=== PATIENT | male | born 1975 | race Caucasian/White ===

== ENCOUNTER 2023-03-10 12:27 | Emergency (ER) | payer OTHER, SELFPAY ==
--- NOTE | ~2023-03-10 | XR_ITS ---
EXAMINATION: XR FOREARM, LEFT Left hand series CLINICAL INFORMATION: Pain swelling decreased range of motion. COMPARISON: None available. TECHNIQUE: AP and lateral views of the left forearm were obtained. 4 views of the left hand including scaphoid view of the wrist FINDINGS: Left hand: The bones joints and soft tissues are normal. I do not see a fracture. Left forearm: Bone and surrounding soft tissues are normal. Elbow unremarkable. XR/XR hand wrist LT IMPRESSION: LEFT HAND: Normal. LEFT FOREARM: Normal.
--- NOTE | ~2023-03-10 | XR_ITS ---
EXAMINATION: XR FOREARM, LEFT Left hand series CLINICAL INFORMATION: Pain swelling decreased range of motion. COMPARISON: None available. TECHNIQUE: AP and lateral views of the left forearm were obtained. 4 views of the left hand including scaphoid view of the wrist FINDINGS: Left hand: The bones joints and soft tissues are normal. I do not see a fracture. Left forearm: Bone and surrounding soft tissues are normal. Elbow unremarkable. XR/XR forearm LT 2V IMPRESSION: LEFT HAND: Normal. LEFT FOREARM: Normal.
[2023-03-10 12:36] VITALS: BP 141/91; PULSE 107; RESP 18; TEMP 37.1; O2SAT 99; BMI 22.8
--- NOTE | 2023-03-10 12:38 | ED.UPPEXIN ---
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 Reports on Monday was working with a [employer] all day, denies direct injury/trauma or fall, states routine soreness afterwards, however yesterday worked again with [employer], & woke up this morning with excruciating pain. Denies fever/chills, numbness/tingling, weakness MD complaint: injury to: arm, forearm, wrist and hand Related Data Previous Rx's Medication Instructions Recorded acetaminophen 300 mg-codeine 30 mg 1 tab PO Q8H PRN pain (scale score 03/10/23 tablet 7-10) 3 days #9 tabs doxycycline hyclate 100 mg tablet 100 mg PO BID 7 days #14 tabs 03/10/23 naproxen 500 mg tablet 500 mg PO BID PRN pain 10 days #20 03/10/23 tabs prednisone 20 mg tablet 40 mg (2 x 20 mg) PO DAILY 5 days 03/10/23 #10 tabs Allergies Allergy/AdvReac Type Severity Reaction Status Date / Time No Known Allergies Allergy Verified 03/10/23 12:35 Review of Systems Review of Systems: Constitutional: No Fever, No Chills ENT/Mouth: No Ear Pain, No Nasal Congestion, No sore throat, No Rhinorrhea, No Swallowing Difficulty Cardiovascular: No Chest Pain, No SOB Respiratory: No Cough, No Sputum, No Wheezing Gastrointestinal: No Nausea, No Vomiting, No Diarrhea, No Constipation, No Abdominal pain Musculoskeletal: + joint pain, No Myalgias, +Joint Swelling Skin: No Skin Lesions, No rash Neuro: No Weakness, No Numbness, No Paresthesias Yes all other systems are reviewed and are negative Constitutional: Constitutional: Reports as per [facility] Past Medical History Attestation statement: The following information was validated with the patient. Source: old records reviewed Social History Social History Advance Directives: No Advance Directives Information Provided: No Physical Exam Vital Signs: Vital Signs: Last Vital Signs Temp 98.8 F 03/10/23 12:36 Pulse 107 H 03/10/23 12:36 Resp 18 03/10/23 12:36 BP 141/91 H 03/10/23 12:36 Pulse Ox 99 03/10/23 12:36 O2 Del Method Room Air 03/10/23 12:36 BMI result Body Mass Index 22.8 Const: General: cooperative, healthy appearing and no acute distress Orientation/consciousness: patient oriented x3 Limitations: no limitations HEENT: Head: Yes normal to inspection and Yes atraumatic Ears: hearing grossly normal bilaterally General nose exam: Normal external nose present Face and sinus: Yes normal facial exam Eyes: General: appearance normal, both eyes and all related structures EOM: EOMs intact bilaterally Neck: Neck: Yes normal visual inspection and Yes no meningeal signs Resp: Effort & Inspection: normal respiratory effort and no respiratory distress Cardio: Rate: regular rate Peripheral pulses: radial pulses present and ulnar radial pulses present Skin: Rashes: no rashes Neuro: General: patient oriented x3, tone normal, moves all extremities and no meningeal signs Cranial nerves: Yes CN's II-XII intact bilaterally Gait exam (Neuro): Normal gait present Extrem: Other: Please refer to images above. Left wrist with mild swelling & erythema. Diffusely tender to palpation. Small ?bite wound to palmar aspect with extending streaking. + snuffbox tenderness. Hand diffusely tender. Old healing callus noted to the palmar aspect of 4th metacarpal. Limited ROM to wrist and digits. Neurovascularly intact. Elbow nontender. No pitting edema. No crepitus. Compartments soft Course Course Course Narrative: XR hand wrist LT/XR forearm LT 2V IMPRESSION: LEFT HAND: Normal. LEFT FOREARM: Normal. > thumb spica splint applied due to snuffbox tenderness. -labs reassuring Results discussed with patient including worrisome signs and symptoms and strict return precautions, and when to return to the emergency department. They verbalized understanding and feel safe for discharge at this time. Medications Administered Discontinued Medications Generic Name Dose Route Start Last Admin Trade Name Freq PRN Reason Stop Dose Admin Ketorolac Tromethamine 30 mg 03/10/23 12:43 03/10/23 13:29 Ketorolac Tromethamine 30 Mg/Ml Vial IM 03/10/23 12:44 30 mg ONCE ONE Administration Oxycodone HCl 5 mg 03/10/23 12:43 03/10/23 13:29 Oxycodone Hcl Immed Release 5 Mg Tablet PO 03/10/23 12:44 5 mg ONCE ONE Administration Medical Decision Making Medical Decision Making [facility] Narrative: 47-year-old male with no significant past medical history presenting to the ED complaining of left hand/wrist and forearm pain, swelling, 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 On exam tachycardic likely from pain, appears uncomfortable, physical exam as noted above. Please refer to image. Concern for strain vs occult fracture vs insect bite with streaking/cellulitis. Lower suspicion for septic joint/arthritis at this time. Low suspicion for necrotizing fasciitis or compartment syndrome. Low suspicion for severe sepsis at this time Plan: X-ray, labs, pain control, re-evaluate. Please refer to course for remaining clinical decision making, interpretation of labs/imaging results, and discussions with consultants and/or family members. Differential Diagnosis Differential Diagnoses: The differential diagnosis associated with the presentation includes As above Admission/Observation Consideration of admission/observation: Escalation of care including admission/observation considered Lab Data [facility] Lab Attestation statement: I reviewed the patient's lab results. 03/10/23 13:18 03/10/23 13:18 Labs: Lab Results 03/10/23 Range/Units 13:18 WBC 11.9 H (4.8-10.8) X10*3/uL RBC 5.36 (4.60-5.80) X10*6/uL Hgb 16.7 (14.0-18.0) g/dl Hct 48.8 (42.0-52.0) % MCV 91.0 (80.0-98.0) fL MCH 31.2 (27.0-33.0) pg MCHC 34.2 (31.0-36.0) g/dl RDW 12.5 (11.0-16.0) % Plt Count 351 (160-400) X10*3/uL MPV 9.3 L (9.4-12.4) fL Immature Gran % (Auto) 0.4 (0.0-0.4) % Neut % (Auto) 66.2 (45-73) % Lymph % (Auto) 22.7 (20-40) % Dougherty % (Auto) 8.8 (2-11) % Eos % (Auto) 1.3 (0-4) % Baso % (Auto) 0.6 (0-2) % Lymph # (Auto) 2.7 (1.2-4.9) X10*3/uL Dougherty # (Auto) 1.0 (0.1-1.2) X10*3/uL Eos # (Auto) 0.2 (0.0-0.4) X10*3/uL Baso # (Auto) 0.1 (0.0-0.2) X10*3/uL Abs Immat Gran (auto) 0.05 H (0.00-0.03) X10*3/uL Absolute Neuts (auto) 7.9 (2.0-8.3) x10*3/uL Absolute Nucleated RBC 0.000 (0.0-0.012) X10*3/uL Nucleated RBC % (auto) 0.0 (0.0-0.2) /100WBC ESR 9 (0-15) MM/HR Sodium 139 (135-145) mmol/L Potassium 3.9 (3.3-5.1) mmol/L Chloride 106 (96-108) mmol/L Carbon Dioxide 24 (22-29) mmol/L Anion Gap 13 (12-20) BUN 9 (9-16) mg/dL Creatinine 0.75 (0.5-1.4) mg/dL Estim Creat Clear Calc 117.1 Estimated GFR > 60 Random Glucose 107 (60-115) mg/dL Calcium 9.9 (8.4-10.2) mg/dL C-Reactive Protein 0.56 H (< or = 0.50) mg/dL Independent Interpretation I performed an independent interpretation of an: Plain X-Ray Radiology Impression Discussion of test interpretation with radiology: I have reviewed the radiologist's reading. External Record Review External record reviewed: Inpatient record, Office record, Outpatient record, Prior outpatient labs, Prior outpatient radiology, Primary care record and Outside ED record Tests considered The following testing was considered but not selected: As above Prescription Management I considered prescription management with: Pain Medication and Antibiotic Procedures Orthopedic Splinting/Casting Injury #1: Side: left Upper Extremity Injury Location: wrist and hand Upper Extremity Immobilizer: thumb spica (Velcro) Discharge Plan Discharge Clinical Impression: Left wrist sprain, Cellulitis Patient Disposition: Home, Self-Care Instructions: Wrist Injury (ED), Cellulitis (DC) Additional Instructions: Your blood work and x-rays were reassuring We are concerned for possible infection with the red streaking, doxycycline as an antibiotic please take as prescribed Prednisone as a steroid which will help with swelling and inflammation. Tylenol #3 is an opiate pain medication, take only when pain is severe for the next 3 days, do not drive, drink alcohol or operate machinery while taking. Do not exceed 4 g of Tylenol and 1 day Please wear splint and follow-up with hse specialist. Ice and elevate If symptoms persist or worsen, streaking worsens, you develop fever, persistent or unremitting pain return to the Prescriptions: New prednisone 20 mg tablet 40 mg PO DAILY 5 Days Qty: 10 0RF doxycycline hyclate 100 mg tablet 100 mg PO BID 7 Days Qty: 14 0RF naproxen 500 mg tablet 500 mg PO BID PRN (Reason: pain) 10 Days Qty: 20 0RF acetaminophen-codeine 300-30 mg tablet 1 tab PO Q8H PRN (Reason: pain (scale score 7-10)) 3 Days Qty: 9 0RF Referrals: [facility] [place] [facility] [place] [facility] [Provider Group] [facility] [Outside] Physician,None [Primary Care Provider] - 3 days Stand Alone Forms: Work/School Release
[2023-03-10 13:24] LABS: MANUAL DIFF FLAG NO
[2023-03-10 13:26] LABS: Basophils Absolute Auto 0.1 X10*3/uL (0.0-0.2); Basophils Percent Auto 0.6 % (0-2); Eosinophils Absolute Auto 0.2 X10*3/uL (0.0-0.4); Eosinophils Percent Auto 1.3 % (0-4); Hematocrit 48.8 % (42.0-52.0); Hemoglobin 16.7 g/dl (14.0-18.0); Imm Gran Abs Auto 0.05 X10*3/uL (0.00-0.03); Imm Gran Pct Auto 0.4 % (0.0-0.4); Lymphocytes Absolute Auto 2.7 X10*3/uL (1.2-4.9); Lymphocytes Percent Auto 22.7 % (20-40); Mean Corpuscular HGB Conc 34.2 g/dl (31.0-36.0); Mean Corpuscular Hemoglobin 31.2 pg (27.0-33.0); Mean Platelet Volume 9.3 fL (9.4-12.4); Monocytes Percent Auto 8.8 % (2-11); Neutrophils Absolute Auto 7.9 x10*3/uL (2.0-8.3); Neutrophils Percent Auto 66.2 % (45-73); Platelet Count 351 X10*3/uL (160-400); Red Blood Count 5.36 X10*6/uL (4.60-5.80); Red Cell Distribution Width 12.5 % (11.0-16.0); White Blood Count 11.9 X10*3/uL (4.8-10.8)
[2023-03-10] MEDS: oxyCODONE HCl Immed Release 5 MG TABLET PO (13:29)
[2023-03-10] MEDS: Ketorolac Tromethamine 30 MG/ML VIAL IM (13:29)
[2023-03-10 13:40] LABS: Anion Gap 13 (12-20); Blood Urea Nitrogen 9 mg/dL (9-16); C Reactive Protein 0.56 mg/dL (< or = 0.50); Calcium 9.9 mg/dL (8.4-10.2); Carbon Dioxide 24 mmol/L (22-29); Chloride 106 mmol/L (96-108); Creatinine Clr Calc Pharmacy 117.1; Estimated Glomerular Filt Rate > 60; Glucose Random 107 mg/dL (60-115); Potassium 3.9 mmol/L (3.3-5.1); Sodium 139 mmol/L (135-145)
[2023-03-10 14:26] LABS: Erythrocyte Sedimentation Rate 9 MM/HR (0-15)
[2023-03-10 15:37] VITALS: BP 149/85; PULSE 99; RESP 18; O2SAT 100
== END 2023-03-10 15:40 | disposition home or self-care (01) ==
PROVIDERS: Physician Assistant; Emergency Provider Emergency Medicine
DX: S63.502A Unspecified sprain of left wrist, initial encounter (principal); M25.532 Pain in left wrist; M79.602 Pain in left arm; X58.XXXA Exposure to other specified factors, initial encounter; Y93.9 Activity, unspecified; Y92.69 Other specified industrial and construction area as the place of occurrence of the external cause; Y99.0 Civilian activity done for income or pay; Z79.899 Other long term (current) drug therapy
CPT/HCPCS: 29125; 36415; 73090; 73110; 73130; 80048; 85025; 85652; 86140; 87040; 96372; 99284; J1885